=== PATIENT | male | born 1995 | race African-American/Black ===

== ENCOUNTER 2019-12-24 08:25 | Emergency (ER) | payer OTHER ==
[2019-12-24 08:35] VITALS: BP 155/84
[2019-12-24] MEDS ORDERED: IPRATROPIUM/ALBUTEROL 3 ML NEB INH STA (08:40)
[2019-12-24] MEDS ORDERED: predniSONE 20 MG TABLET PO STA (08:41)
--- NOTE | 2019-12-24 08:44 | ED Physician Documentation ---
PD HPI URI - Stated complaint Stated Complaint: WHEEZY - Chief complaint Chief Complaint: Resp - History obtained from History obtained from: Patient - History of Present Illness Timing - onset: Other (24-year-old gentleman with mild intermittent asthma presents with a 2-day exacerbation of same with mild nonproductive cough and wheezing and shortness of breath. Denies runny nose, sore throat or fever. Has never been hospitalized for same. On most days he does not use anything for his asthma, just a rescue inhaler as needed. Last refill was last March when he was here.) Review of Systems Constitutional: denies: Fever, Chills Nose: denies: Rhinorrhea / runny nose Throat: denies: Sore throat Respiratory: reports: Dyspnea, Cough. denies: Hemoptysis GI: denies: Abdominal Pain PD PAST MEDICAL HISTORY - Past Medical History Past Medical History: Yes Cardiovascular: None Respiratory: Asthma Endocrine/Autoimmune: None GI: None : None HEENT: None Psych: None Musculoskeletal: None Derm: None - Past Surgical History Past Surgical History: Yes Ortho: Shoulder arthroplasty - Present Medications Home Medications: Ambulatory Orders Medication Instructions Recorded Confirmed Albuterol 04/25/19 Albuterol Sulf [Ventolin Hfa 1 - 2 puffs INH Q4HR PRN #1 inhaler 04/25/19 Inhaler] Nebulizer and Compressor [[place] 1 each MC PRN PRN #1 each 04/25/19 Choice Nebulizer] predniSONE [Prednisone] 60 mg PO DAILY 5 Days tablet 04/25/19 Albuterol Sulf [Ventolin Hfa 1 - 2 puffs INH Q4HR PRN #1 inhaler 12/24/19 Inhaler] predniSONE [Deltasone] 60 mg PO DAILY 5 Days #15 tablet 12/24/19 - Allergies Allergies/Adverse Reactions: Allergies Allergy/AdvReac Type Severity Reaction Status Date / Time No Known Drug Allergies Allergy Verified 12/24/19 08:32 - Social History Does the pt smoke?: No Smoking Status: Never smoker - Immunizations Immunizations are current?: Yes PD ED PE NORMAL - Vitals Vital signs reviewed: Yes - General General: Alert and oriented X 3, No acute distress - HEENT HEENT: PERRL, EOMI, Pharynx benign - Neck Neck: Supple, no meningeal sign, No bony TTP - Cardiac Cardiac: RRR, No murmur - Respiratory Respiratory: No respiratory distress, Other (Mildly diminished with mild expiratory wheezing throughout but actually really good air motion, no focal findings.) - Abdomen Abdomen: Non tender - Neuro Neuro: Alert and oriented X 3, Normal speech Results - Vitals Vitals: Vital Signs - 24 hr 12/24/19 08:33 Temperature 36.3 C L Heart Rate 74 Respiratory 14 Rate Blood Pressure 155/84 H O2 Saturation 97 Oxygen O2 Source Room air PD MEDICAL DECISION MAKING - ED course ED course: 24-year-old gentleman with exacerbation of asthma, nothing to suggest an infectious process. He is treated with oral steroids, DuoNeb here and a refill of his inhaler. Departure - Departure Disposition: 01 Home, Self Care Clinical Impression: Asthma Qualifiers: Asthma severity: mild Asthma persistence: intermittent Asthma complication type: with acute exacerbation Qualified Code(s): J45.21 - Mild intermittent asthma with (acute) exacerbation Condition: Good Record reviewed to determine appropriate education?: Yes Instructions: Asthma Dc Prescriptions: Albuterol Sulf [Ventolin Hfa Inhaler] 1 - 2 puffs INH Q4HR PRN #1 inhaler PRN Reason: Shortness Of Air/Wheezing predniSONE [Deltasone] 60 mg PO DAILY 5 Days #15 tablet Comments: For ongoing and routine care he should [place] with [place] [facility] in [place], the phone number is [phone]. Return for new or worsening symptoms.
== END 2019-12-24 09:07 | disposition home or self-care (01) ==
LOC: ED 08:25
DX: J45.21 Mild intermittent asthma with (acute) exacerbation (principal)
CPT/HCPCS: 94640; 99283; 99284; J7512

== ENCOUNTER 2020-01-10 17:34 | Emergency (ER) | payer OTHER ==
[2020-01-10 18:04] VITALS: BP 150/96
[2020-01-10] MEDS ORDERED: COLCHICINE 0.6 MG TABLET PO STA (18:33)
[2020-01-10] MEDS ORDERED: IBUPROFEN 800 MG TABLET PO STA (18:33)
--- NOTE | 2020-01-10 18:35 | XRAY Report ---
Reason: chest pain Procedure Date: 01/10/2020 Accession Number: [id number] / [id number] Procedure: XR - Chest 1 View X-Ray CPT Code: 18479 Final Report FULL RESULT: EXAM: CHEST RADIOGRAPHY EXAM DATE: 01/10/2020 06:29 PM. CLINICAL HISTORY: Chest pain. COMPARISON: None. TECHNIQUE: 1 view. FINDINGS: Lungs/Pleura: No focal opacities evident. No pleural effusion. No pneumothorax. Mediastinum: Within exam limitations, the cardiomediastinal contour is normal. Other: None. IMPRESSION: Normal single view chest. RADIA
--- NOTE | 2020-01-10 18:36 | ED Physician Documentation ---
History of Present Illness - Stated complaint Stated Complaint: CP/SOA - Chief complaint Chief Complaint: Resp - History obtained from History obtained from: Patient - History of Present Illness Timing: How many weeks ago (1) Pain level max: 5 Pain level now: 5 - Additonal information Additional information: 24-year-old male states that he has had sharp substernal chest pain for the past week. He states that he was seen here previously and prescribed an inhaler and steroids, states that the pain has not improved. Describes the pain as sharp. Worse with breathing, worse with lying down. No fevers. No cough. Review of Systems Ten Systems: 10 systems reviewed and negative Constitutional: denies: Fever, Chills Nose: denies: Rhinorrhea / runny nose, Congestion Respiratory: denies: Cough GI: denies: Abdominal Pain, Vomiting, Diarrhea : denies: Dysuria Skin: denies: Rash Musculoskeletal: denies: Neck pain, Back pain Neurologic: denies: Headache PD PAST MEDICAL HISTORY - Past Medical History Cardiovascular: None Respiratory: Asthma Neuro: None Endocrine/Autoimmune: None GI: None : None HEENT: None Psych: Post traumatic stress disorder Musculoskeletal: None Derm: None - Past Surgical History Past Surgical History: Yes Ortho: Shoulder arthroplasty - Present Medications Home Medications: Ambulatory Orders Medication Instructions Recorded Confirmed Albuterol Sulf [Ventolin Hfa 1 - 2 puffs INH Q4HR PRN #1 inhaler 12/24/19 01/10/20 Inhaler] Colchicine 0.6 mg PO BID #20 tablet 01/10/20 Ibuprofen [Motrin] 800 mg PO Q8H PRN #30 tablet 01/10/20 - Allergies Allergies/Adverse Reactions: Allergies Allergy/AdvReac Type Severity Reaction Status Date / Time No Known Drug Allergies Allergy Verified 01/10/20 17:42 - Social History Does the pt smoke?: No Smoking Status: Never smoker Does the pt drink ETOH?: Yes Does the pt have substance abuse?: Yes Substance Use and Type: Marijuana - Immunizations Immunizations are current?: Yes - POLST Patient has POLST: No PD ED PE NORMAL - Vitals Vital signs reviewed: Yes - General General: Alert and oriented X 3, No acute distress - HEENT HEENT: Moist mucous membranes - Neck Neck: Supple, no meningeal sign, No JVD, No bruit - Cardiac Cardiac: RRR, No murmur, No gallop, No rub, Strong equal pulses - Respiratory Respiratory: No respiratory distress, Clear bilaterally - Abdomen Abdomen: Soft, Non tender, Non distended - Derm Derm: Warm and dry - Extremities Extremities: No edema, No calf tenderness / cord - Neuro Neuro: Alert and oriented X 3 - Psych Psych: Normal mood, Normal affect Results - Vitals Vitals: Vital Signs - 24 hr 01/10/20 01/10/20 01/10/20 17:42 18:00 18:41 Temperature 36.9 C Heart Rate 74 85 65 Respiratory 16 16 18 Rate Blood Pressure 157/81 H 150/96 H 150/96 H O2 Saturation 97 97 98 Oxygen O2 Source Room air - EKG (time done) 1747 Rate: Rate (enter#) (72) Rhythm: NSR [place]: Normal Intervals: Normal [place] QRS: Normal Ischemia: Other (WA depression, ST elevation c/w pericarditis) - Rads (name of study) cxr Radiology: Prelim report reviewed, EMP read contemporaneously, See rad report (No acute disease) PD MEDICAL DECISION MAKING - ED course Complexity details: reviewed results, re-evaluated patient, considered differential, d/w patient ED course: 24-year-old male presents the emergency department what appears to be pericarditis. Will place him on Motrin and colchicine for home. No acute findings on chest x-ray. No symptoms of tamponade. Patient counseled regarding signs and symptoms for which I believe and urgent re-evaluation would be necessary. Patient with good understanding of and agreement to plan and is com fortable going home at this time This document was made in part using voice recognition software. While efforts are made to proofread this document, sound alike and grammatical errors may occur. Departure - Departure Disposition: Home, Self Care Clinical Impression: Pericarditis Qualifiers: Pericarditis type: unspecified type Chronicity: acute Qualified Code(s): I30.9 - Acute pericarditis, unspecified Condition: Good Instructions: ED Chest Pain Pericarditis Follow-Up: your,doctor in 1 week [Other] Prescriptions: Colchicine 0.6 mg PO BID #20 tablet Ibuprofen [Motrin] 800 mg PO Q8H PRN #30 tablet PRN Reason: PAIN &/OR FEVER Comments: Return if you worsen. Follow up with your doctor for further care. You may need to be on colchicine for several months. Discharge Date/Time: 01/10/20 18:48
== END 2020-01-10 18:48 | disposition home or self-care (01) ==
LOC: ED 17:34
DX: I30.9 Acute pericarditis, unspecified (principal)
CPT/HCPCS: 71045; 93005; 99283; 99284; A9270

== ENCOUNTER 2021-07-31 18:38 | Outpatient (CLI) | payer OTHER | END 2021-07-31 18:39 | disposition home or self-care (01) | LOC: COV 18:38 | PROVIDERS: ATTEND Surgery | DX: Z01.812 Encounter for preprocedural laboratory examination (principal); K40.90 Unilateral inguinal hernia, without obstruction or gangrene, not specified as recurrent; K42.9 Umbilical hernia without obstruction or gangrene; Z20.822 Contact with and (suspected) exposure to COVID-19 ==

== ENCOUNTER 2021-08-02 07:32 | Day surgery (SDC) | payer OTHER ==
[~2021-08-02 07:32] MED LIST: BUPIVACAINE 0.25% PF 30 ML VIAL ONE; DEXAMETHASONE 4 MG/ML VIAL ONE; KETOROLAC 30 MG/ML VIAL ONE; LIDOCAINE-MPF 2% 5 ML VIAL ONE; MIDAZOLAM 2 MG/2 ML VIAL ONE; ONDANSETRON 4 MG/2 ML VIAL ONE; PROPOFOL 200 MG/20 ML VIAL IVP ONE; fentaNYL 100 MCG/2 ML VIAL ONE
[2021-08-02] MEDS ORDERED: CEFAZOLIN SODIUM IN 0.9 % NACL 2 GM/100 ML BAG IV ONE (07:46)
[2021-08-02] MEDS ORDERED: MIDAZOLAM 2 MG/2 ML VIAL ONE (08:13)
[2021-08-02] MEDS ORDERED: LIDOCAINE-MPF 2% 5 ML VIAL ONE (08:13)
[2021-08-02] MEDS ORDERED: PROPOFOL 200 MG/20 ML VIAL IVP ONE (08:13)
[2021-08-02] MEDS ORDERED: fentaNYL 100 MCG/2 ML VIAL ONE ×2 (08:13→09:46)
[2021-08-02] MEDS ORDERED: KETOROLAC 30 MG/ML VIAL ONE (08:14)
[2021-08-02] MEDS ORDERED: DEXAMETHASONE 4 MG/ML VIAL ONE (08:14)
[2021-08-02] MEDS ORDERED: ROCURONIUM 50 MG/5 ML VIAL ONE ×2 (08:14→10:01)
[2021-08-02] MEDS ORDERED: ONDANSETRON 4 MG/2 ML VIAL ONE (08:14)
[2021-08-02] MEDS ORDERED: LACTATED RINGERS 1,000 ML IV ONE ×2 (08:24→12:07)
--- NOTE | 2021-08-02 08:55 | ANESTHESIA ---
Pre-Anesthesia VS, & Labs - Diagnosis left inguinal hernia - Procedure laparoscopic left inguinal hernia repair Vital Signs: Temp Pulse Resp BP Pulse Ox 36.4 C L 81 15 144/89 H 97 08/02/21 07:40 08/02/21 07:40 08/02/21 07:40 08/02/21 07:40 08/02/21 07:40 Height: 6 ft Weight (kg): 112.7 kg Body Mass Index: 33.7 BMI Classification: Obese - NPO >8 hours - Lab Results Lab results reviewed: Yes Home Medications and Allergies Home Medications: Ambulatory Orders Fluticasone 44 Mcg [Flovent] 1 puffs INH BID 08/02/21 Fluticasone 44 Mcg [Flovent] 1 puffs INH BID 08/02/21 Allergies/Adverse Reactions: Allergies Allergy/AdvReac Type Severity Reaction Status Date / Time No Known Drug Allergies Allergy Verified 01/10/20 17:42 Anes History & Medical History - Anesthetic History Anesthesia Complications: reports: No previous complications Family history of Anesthesia Complications: Denies Family history of Malignant Hyperthermia: Denies - Medical History Cardiovascular: reports: None Pulmonary: reports: Asthma Gastrointestinal: reports: None Urinary: reports: None Neuro: reports: None Musculoskeletal: reports: None Endocrine/Autoimmune: reports: None Blood Disorders: reports: None Skin: reports: None Smoking Status: Current every day smoker Psychosocial: reports: Cannabis - Surgical History Orthopedic: reports: Shoulder arthroplasty Exam General: Alert, Oriented x3, Cooperative, No acute distress Dental: WNL Mouth Openin Fingerbreadth Neck Mobility: Normal Mallampati classification: II Respiratory: Lungs clear, Normal breath sounds, No respiratory distress, No accessory muscle use Cardiovascular: Regular rate, Normal S1, Normal S2, No murmurs Plan Anesthesia Type: General Consent for Procedure(s) Verified and Reviewed: Yes Code Status: Attempt Resuscitation ASA classification: 2-Mild systemic disease Is this case an emergency?: No
[2021-08-02] MEDS ORDERED: BUPIVACAINE 0.25% PF 30 ML VIAL ONE ×2 (09:00→11:16)
[2021-08-02] MEDS ORDERED: ePHEDrine 50 MG/ML VIAL IVP PRN (09:05)
[2021-08-02] MEDS ORDERED: METOCLOPRAMIDE 10 MG/2 ML VIAL IVP PRN (09:05)
[2021-08-02] MEDS ORDERED: NALOXONE 0.4 MG/ML VIAL IVP PRN (09:05)
[2021-08-02] MEDS ORDERED: MORPHINE 2 MG/ML CARPUJECT IVP PRN (09:05)
[2021-08-02] MEDS ORDERED: fentaNYL 100 MCG/2 ML VIAL IVP PRN (09:05)
[2021-08-02] MEDS ORDERED: HYDROmorphone 0.5 MG/0.5 ML SYRINGE IVP PRN (09:05)
[2021-08-02] MEDS ORDERED: ONDANSETRON 4 MG/2 ML VIAL IVP PRN (09:05)
[2021-08-02] MEDS ORDERED: ATROPINE ABBOJECT 1 MG/10 ML SYRINGE IVP PRN (09:05)
[2021-08-02] MEDS ORDERED: BUPIVACAINE 0.25% PF 30 ML VIAL SUBQ ONE ×2 (09:45)
[2021-08-02] MEDS ORDERED: LACTATED RINGERS 1,000 ML IV SCH (10:00)
[2021-08-02] MEDS ORDERED: SUGAMMADEX 200 MG/2 ML VIAL IVP ONE (11:25)
[2021-08-02] MEDS ORDERED: HYDROmorphone 1 MG/ML CARPUJECT ONE (11:55)
--- NOTE | 2021-08-02 12:29 | ANESTHESIA POST OP EVALUATION ---
Anesthesia Post Eval - Post Anesthesia Eval Vitals: Last Vital Signs Temp 36.3 C L 08/02/21 12:26 Pulse 94 08/02/21 12:26 Resp 16 08/02/21 12:26 BP 149/88 H 08/02/21 12:26 Pulse Ox 99 08/02/21 12:26 CV Function Including HR & BP: Stable Pain Control: Satisfactory Nausea & Vomiting: Negative Mental Status: Baseline Respiratory Status: Airway Patent Hydration Status: Satisfactory Anesthesia Complications: None
--- NOTE | 2021-08-02 12:40 | OPERATIVE REPORT ---
Operative Report - General Procedure Date: 08/02/21 Planned Procedure: laparoscopic left inguinal hernia repair umbilical hernia repair Pre-Op Diagnosis: left inguinal hernia and umbilical hernia Post Op Diagnosis: laparoscopic left inguinal hernia repair and umbilical hernia repair - Procedure Note Primary Surgeon: rayne evangelista Anesthesia Technique: General ET tube, Local Pathology: none Drain/Tube Type: Other (none) Indications: painful hernia bulge Findings: large indirect inguinal hernia less than 1 cm umbilical hernia Complications: none - Other Other Information/Narrative: The patient was prepped identified brought to the operating room and placed in supine position. General endotracheal anesthesia was induced. Sequental compression devices were placed. He was prepped and draped in a sterile fashion and given preoperative antibiotics. A 2 and half centimeter incision was made in the infrumbilical area. Dissection proceeded down to the fascia. The fascia was incised just right lateral of midline. The preperitoneal space was developed with gentle blunt retraction with finger dissection. A Yee trocar was placed and secured with 3 interrupted 0 Vicryl sutures. A 30 degree scope was used. The preperitoneal space was further developed with the use of the scope. In midline 2 5 mm trochars were placed. The superficial epigastric vessels were kept along the cord structures. The pubic tubercle and Guero's ligament was defined. Cord structures were defined. A pocket was created large enough for a large preformed mesh. Patient had a large indirect inguinal hernia. The indirect hernia sac was mobilized off from the cord structures and further towards the retroperitoneum. The indirect hernia sac was tied with an Endoloop. Preperitoneal adipose tissue was removed from the internal ring. Large preformed mesh was then placed. It was secured with a CapSure tacker at the pubic tubercle Guero's ligament area and under the rectus musculature. Trochars were removed under direct vision and CO2 evacuated. Fascia at the infraumbilical site was closed with a total of 4-0 Vicryl sutures. The umbilical hernia was then addressed. The umbilical skin was sharply excised away from the hernia sac. 2-1/2 cm of adipose tissue was incarcerated through a less than 1 cm fascial defect. Adipose tissue was carefully released. The defect was quite small and he had no tension on on his abdominal wall. Fascia seemed of good quality. The umbilical hernia was repaired with 5 interrupted 0 Ethibond sutures. Subcutaneous tissue was closed with interrupted 2-0 Vicryl linares evan. Skin was closed with running or buried interrupted 4-0 Monocryl. Dressings were applied. He was awakened and brought to recovery in good condition.
[2021-08-02] MEDS ORDERED: HYDROcod/ACETAM 5/325 MG TABLET ONE ×2 (12:52→13:41)
[2021-08-02] MEDS: HYDROcod/ACETAM 5/325 MG TABLET PO PRN ×2 (12:56→13:35)
[2021-08-02] MEDS ORDERED: IPRATROPIUM/ALBUTEROL 3 ML NEB INH PRN (12:57)
[2021-08-02 13:38] VITALS: BP 152/90
== END 2021-08-02 07:33 | disposition home or self-care (01) ==
LOC: SDS 07:32
PROVIDERS: ATTEND Surgery
PROC: 0YU64JZ Supplement Left Inguinal Region with Synthetic Substitute, Percutaneous Endoscopic Approach (ICD-10-PCS; principal; 2021-08-02 08:30)
PROC: 0WQF0ZZ Repair Abdominal Wall, Open Approach (ICD-10-PCS; 2021-08-02 08:30)
DX: K40.90 Unilateral inguinal hernia, without obstruction or gangrene, not specified as recurrent (principal); K42.0 Umbilical hernia with obstruction, without gangrene; J45.909 Unspecified asthma, uncomplicated; F17.200 Nicotine dependence, unspecified, uncomplicated; E66.9 Obesity, unspecified; Z68.33 Body mass index [BMI] 33.0-33.9, adult; Z20.822 Contact with and (suspected) exposure to COVID-19; Z79.51 Long term (current) use of inhaled steroids
CPT/HCPCS: 49587; 49650; 87635; A9270; C1781; J0690; J1170; J7120

== ENCOUNTER 2021-09-04 02:48 | Outpatient (CLI) | payer OTHER | END 2021-09-04 02:49 | disposition E | LOC: EMS 02:48 | DX: R09.2 Respiratory arrest (principal) | CPT/HCPCS: A0425; A0429 ==